=== PATIENT | female | born 2000 | race Hispanic/Latino ===

== ENCOUNTER 2022-07-28 14:38 | Emergency (ER) | payer BC, SELFPAY ==
--- NOTE | ~2022-07-28 | US_ITS ---
EXAMINATION: US OB <=14 wk fetus w TV DATE: 07/28/2022 18:31 INDICATION: Vaginal bleeding during first trimester TECHNIQUE: Real-time pelvic transabdominal and transvaginal ultrasound was performed. COMPARISON: None. FINDINGS: The uterus measures 8.4 x 4.8 x 5.6 cm. There is an intrauterine gestational sac. A yolk sa c is identified. No pole is identified. The mean sac diameter measures 1.5 cm, which correlates with an estimated gestational age of 6 weeks and 2 day(s) (+/-) 4 day(s). The right ovary measures 3.0 x 2.1 x 2.2 cm. The left ovary measures 2.4 x 0.9 x 1.3 cm. There is nor mal vascular flow in the ovaries. There is no free fluid in the pelvis. IMPRESSION: 1. Intrauterine gestational sac and yolk sac with an estimated gestational age of 6 weeks and 2 day(s ) (+/-) 4 day(s) and an estimated delivery date of 03/21/2023 based on mean sac diameter. pole not yet visualized, likely due to early gestation. Reviewed, dictated and finalized at location [facility] IMPRESSION: 1. Intrauterine gestational sac and yolk sac with an estimated gestational age of 6 weeks and 2 day(s) (+/-) 4 day(s) and an estimated delivery date of 2022 based on mean sac diameter. pole not yet visualized, likely due to e maye gestation.
[2022-07-28 15:23] VITALS: BP 141/88; PULSE 90; RESP 16; TEMP 36.6; O2SAT 100
[2022-07-28 15:55] LABS: Basophils Percent Auto 0.4 % (0.2-1.2); Eosinophils Percent Auto 0.2 % (0-4.4); Hematocrit 38.1 % (37.0-47.0); Hemoglobin 12.9 g/dL (12.0-15.0); Immature Granulocyte Absolute 0.01 K/mm3 (0.00-0.031); Immature Granulocyte Percent A 0.2 % (0-0.5); Lymphocytes Absolute Auto 1.18 K/mm3 (0.9-3.2); Lymphocytes Percent Auto 23.8 % (18.3-44.2); Mean Corpuscular HGB Conc 33.9 g/dl (32-36); Mean Corpuscular Hemoglobin 30.9 pg (26-34); Mean Corpuscular Volume 91.1 fl (80-100); Mean Platelet Volume 9.4 fl (7.4-10.4); Monocytes Absolute Auto 0.7 K/mm3 (0.1-0.6); Monocytes Percent Auto 14.5 % (2.6-8.5); Neutrophils Percent Auto 60.9 % (45.5-73.1); Platelet Count Result 258 k/mm3 (150-375); Red Blood Count 4.18 M/mm3 (4.2-5.4); Red Cell Distribution Width 13.1 % (11.5-14.5)
--- NOTE | 2022-07-28 17:23 | ED.PREGNANCY ---
HPI - General Chief complaint: Vaginal Bleeding Stated complaint: vaginal bleeding and cramping Time Seen by Provider: 07/28/22 16:56 History of Present Illness HPI Narrative: 21-year-old female who is currently about 7 weeks by LMP here for evaluation of vaginal bleeding. Patient states yesterday she had quite a bit of lower abdominal cramping that has since resolved. This morning she noticed a small amount of blood in her underwear with a small blood clot. She has not had any bleeding or cramping since then but wanted to be evaluated. She has not yet had an ultrasound. She took a test and found out she was 2 weeks ago. Related Data Home Medications Medication Instructions Recorded Confirmed duloxetine 60 mg capsule,delayed 60 mg PO 09/10/21 03/30/22 release trazodone 50 mg tablet 25 mg PO 09/10/21 03/30/22 lisdexamfetamine 50 mg capsule 50 mg PO DAILY 03/29/22 03/30/22 (Vyvanse) Allergies Allergy/AdvReac Type Severity Reaction Status Date / Time No Known Allergies Allergy Verified 03/29/22 14:58 Review of Systems Review of Systems: Gen: Denies fevers or chills Eyes: Denies eye pain or visual change ENT: Denies congestion Respiratory: Denies shortness of breath or cough CV: Denies chest pain or palpitations GI: Denies abdominal pain nausea, emesis or diarrhea reports pelvic cramping and vaginal bleeding since resolved. Denies burning, urgency, frequency or hematuria Musculoskeletal: Denies back pain or muscle pain Neuro: Denies numbness, tingling, weakness or focal weakness Skin: Denies rash Except as documented, all other systems reviewed and negative [facility] Family History Family History Mother Depression Social History Social History (Updated 03/29/22 @ 14:59 by Pauline Dee) Social History: Caffeine- moderate Smoking status: Never smoker Second hand tobacco smoke exposure: No Alcohol intake: current Alcohol use details: rarely Substance use: never Substance use type: does not use Living arrangements: with family Occupation/Education: occupation Gender identity (if verbalized by the patient): Female Exam Narrative: APPEARANCE: Well appearing, no pain in distress, well-nourished. Head: Normocephalic and atraumatic. EYES: PERRLA/EOMI, conjunctivae clear NOSE: No nasal drainage EARS: External ear normal in appearance THROAT: Oropharynx is clear. Mucous membranes are moist. NECK: Supple. No adenopathy, no masses. RESPIRATORY: Airway patent, respirations nonlabored. Clear to auscultation bilaterally, no rales, rhonchi, wheezing. CARDIOVASCULAR: Regular rate and rhythm without murmurs, rubs, or gallops. : deferred ABDOMINAL: Normoactive bowel sounds. Soft, nontender, nondistended. No rebound tenderness or guarding. MUSCULOSKELETAL: Extremities are warm and well-perfused. Moves all extremities well. No edema. NEURO: Normal speech. No focal neurologic deficits. SKIN: Skin is warm and dry. No rashes. PSYCHIATRIC: Normal affect/mood.. Course Vital Signs Vital signs: Vital Signs Temperature 98 F 07/28/22 15:23 Pulse Rate 90 07/28/22 15:23 Respiratory Rate 16 07/28/22 15:23 Blood Pressure 141/88 H 07/28/22 15:23 Pulse Oximetry 100 07/28/22 15:23 Temperature 98 F 07/28/22 15:23 Pulse Rate 85 07/28/22 19:46 Respiratory Rate 19 07/28/22 19:46 Blood Pressure 134/77 07/28/22 19:46 Pulse Oximetry 100 07/28/22 19:46 MDM - OB/Uterine Contractions MDM Narrative Medical decision making narrative: 21-year-old female who is currently about 6 weeks by LMP here for evaluation of an episode of vaginal bleeding earlier today and abdominal cramping yesterday. She is nontoxic in appearance and has normal vital signs, denies any vaginal bleeding currently. Hemoglobin hematocrit are normal at 12.9/38.1. She is A+, no need for RhoGAM. Yfn
[2022-07-28 19:19] LABS: Appearance Urine Clear (Clear); Bilirubin Urine Negative (Negative); Blood Urine Negative (Negative); Color Urine Yellow (Yellow); Glucose Urine UA Negative (Negative); Ketones Urine Trace mg/dL (Negative); Leukocyte Esterase Ur Negative LEU/UL (Negative); Nitrate Urine Negative (Negative); Protein Urine Negative (Negative); Specific Grav Ur 1.032 (1.001-1.035); Urobilinogen Urine 0.2 mg/dL (<2.0); pH Urine 5.5 (5.0-9.0)
[2022-07-28 19:28] LABS: Add Urine Microscopic? NO
[2022-07-28 19:46] VITALS: BP 134/77; PULSE 85; RESP 19; O2SAT 100
== END 2022-07-28 19:46 | disposition home or self-care (01) ==
PROVIDERS: Emergency Medicine; Emergency Provider Physician Assistant; PCP Physician Assistant
DX: O20.9 Hemorrhage in early pregnancy, unspecified (principal); Z3A.01 Less than 8 weeks gestation of pregnancy
CPT/HCPCS: 36415; 76801; 76817; 81003; 84702; 85025; 85461; 86850; 86900; 86901; 99284

== ENCOUNTER 2023-03-15 13:08 | Inpatient (IN) | payer BC, SELFPAY ==
[2023-03-15] VITALS (16 sets, daily range): BP systolic 125–148; BP diastolic 77–100; PULSE 85–118; RESP 18; TEMP 36.6
--- NOTE | 2023-03-15 13:51 | LDADM ---
This patient, Ananya Hagen, was admitted to Labor/Delivery/Recovery 108 on 03/15/23 at 13:08. Plans for labor, pain management and were discussed with patient. Patient/family oriented to hospital policies and general routines including ID bracelet, bed and alarms, visiting hours, pain management, procedures, bathroom and other care routines, personal items, smoking policy, room service/diet and guest tray routines, infant security routines, and visiting hours. Patient/Family are encouraged to report perceived risks to care and to ask questions if they do not understand what they are told or what they should do. See OBIX for further documentation.
[2023-03-15 14:14] LABS: Basophils Percent Auto 0.3 % (0.2-1.2); Eosinophils Percent Auto 0.3 % (0-4.4); Hematocrit 34.3 % (37.0-47.0); Hemoglobin 10.8 g/dL (12.0-15.0); Immature Granulocyte Absolute 0.12 K/mm3 (0.00-0.031); Immature Granulocyte Percent A 0.9 % (0-0.5); Lymphocytes Absolute Auto 1.77 K/mm3 (0.9-3.2); Lymphocytes Percent Auto 12.9 % (18.3-44.2); Mean Corpuscular HGB Conc 31.5 g/dl (32-36); Mean Corpuscular Hemoglobin 27.3 pg (26-34); Mean Corpuscular Volume 86.6 fl (80-100); Mean Platelet Volume 10.4 fl (7.4-10.4); Monocytes Absolute Auto 0.6 K/mm3 (0.1-0.6); Monocytes Percent Auto 4.1 % (2.6-8.5); Neutrophils Absolute Auto 11.2 K/mm3 (1.3-6.7); Neutrophils Percent Auto 81.5 % (45.5-73.1); Platelet Count Result 369 k/mm3 (150-375); Red Blood Count 3.96 M/mm3 (4.2-5.4); Red Cell Distribution Width 13.9 % (11.5-14.5); White Blood Count 13.7 K/mm3 (4.5-10.0)
[2023-03-15 14:20] LABS: Creatinine Urine 136.2 mg/dL
[2023-03-15 14:22] LABS: Alanine Aminotransferase 18 U/L (6-35); Albumin Level 3.8 g/dL (3.5-5.1); Alkaline Phosphatase 255 U/L (38-126); Anion Gap 9 mmol/L (8-16); Aspartate Amino Transferase 27 U/L (14-36); Bilirubin,Total 0.5 mg/dL (0.2-1.3); Blood Urea Nitrogen 10 mg/dL (7-17); Calcium 9.1 mg/dL (8.4-10.2); Carbon Dioxide 18 mmol/L (22-30); Chloride 106 mmol/L (98-107); Estimated Glomerular Filt Rate > 60; Glucose 93 mg/dL (65-110); Potassium 3.8 mmol/L (3.4-5.0); Sodium 133 mmol/L (137-145); Uric Acid 5.3 mg/dL (2.5-7.5)
[2023-03-15 14:23] LABS: Total Protein Urine Random < 5 mg/dL; Ur Ttl Prot Creatinine Ratio < 0.04 mg/mg (0-0.20)
[2023-03-15] MEDS: DINOPROSTONE 10 MG VAG INSERT VAGINAL (14:30)
[2023-03-15 15:03] LABS: HIV 1/2 Ab P24 Ag Result Negative (Negative)
[2023-03-15 15:25] LABS: Rubella IgG Antibody 10.7 IU/ML
[2023-03-15 15:32] LABS: Appearance Urine Clear (Clear); Bacteria Urine 2+ /hpf; Bilirubin Urine Negative (Negative); Blood Urine Negative (Negative); Color Urine Yellow (Yellow); Glucose Urine UA Negative (Negative); Ketones Urine Trace mg/dL (Negative); Leukocyte Esterase Ur 1+ LEU/UL (NEGATIVE); Need Manual Microscopic Reviewed; Nitrate Urine Negative (Negative); Non Pathogenic Casts 0-2; Protein Urine Negative (Negative); RBC Urine 0-2 /hpf (0-2); Specific Grav Ur 1.021 (1.001-1.035); Squamous Epithelial Cell Urine Occasional /hpf (Few); Urobilinogen Urine 0.2 mg/dL (<2.0)
[2023-03-15 15:36] LABS: Add Urine Microscopic? YES
--- NOTE | 2023-03-15 20:34 | WPDANESEPP ---
Anes - Eval Pre Procedure Procedure: Labor epidural Date/Time: 03/15/23 20:34 Surgeon: Fady Preop Diagnosis: Abdominal pain with contractions Pre Op Diagnosis: MIL Patient Data Age: 22 Gender: F Height: Weight: Last Vital Signs Temp 97.8 F 03/15/23 14:30 Pulse 98 03/15/23 16:31 Resp 18 03/15/23 14:30 BP 125/99 H 03/15/23 16:31 O2 Del Method Room Air 03/15/23 13:50 Allergies Allergy/AdvReac Type Severity Reaction Status Date / Time No Known Allergies Allergy Verified 03/15/23 09:50 Home Medications Medication Instructions Recorded Confirmed Type docosahexaenoic acid 200 mg 200 mg PO DAILY 01/13/23 03/15/23 History capsule ( DHA) ferrous sulfate 325 mg (65 mg 325 mg PO DAILY 01/13/23 03/15/23 History iron) tablet (FeroSul) Laboratory Tests 03/15/23 03/15/23 13:34 13:35 WBC 13.7 H K/mm3 (4.5-10.0) RBC 3.96 L M/mm3 (4.2-5.4) Hgb 10.8 L g/dL (12.0-15.0) Hct 34.3 L % (37.0-47.0) MCV 86.6 fl (80-100) MCH 27.3 pg (26-34) MCHC 31.5 L g/dl (32-36) RDW 13.9 % (11.5-14.5) Plt Count 369 k/mm3 (150-375) MPV 10.4 fl (7.4-10.4) Immature Gran % (Auto) 0.9 H % (0-0.5) Neut % (Auto) 81.5 H % (45.5-73.1) Lymph % (Auto) 12.9 L % (18.3-44.2) [place] % (Auto) 4.1 % (2.6-8.5) Eos % (Auto) 0.3 % (0-4.4) Baso % (Auto) 0.3 % (0.2-1.2) Lymph # (Auto) 1.77 K/mm3 (0.9-3.2) [place] # (Auto) 0.6 K/mm3 (0.1-0.6) Eos # (Auto) 0.0 K/mm3 (0-0.3) Baso # (Auto) 0.0 K/mm3 (0.0-0.1) Abs Immat Gran (auto) 0.12 H K/mm3 (0.00-0.031) Absolute Neuts (auto) 11.2 H K/mm3 (1.3-6.7) Absolute Nucleated RBC 0.0 K/mm3 (0.0-0.012) Nucleated RBC % 0.0 % (0.0-0.2) Sodium 133 L mmol/L (137-145) Potassium 3.8 mmol/L (3.4-5.0) Chloride 106 mmol/L (98-107) Carbon Dioxide 18 L mmol/L (22-30) Anion Gap 9 mmol/L (8-16) BUN 10 mg/dL (7-17) Creatinine 0.60 L mg/dL (0.7-1.0) Estim Creat Clear Calc Not Reportable Estimated GFR > 60 (59 - ) Glucose 93 mg/dL (65-110) Uric Acid 5.3 mg/dL (2.5-7.5) Calcium 9.1 mg/dL (8.4-10.2) Total Bilirubin 0.5 mg/dL (0.2-1.3) AST 27 U/L (14-36) ALT 18 U/L (6-35) Alkaline Phosphatase 255 H U/L (38-126) Total Protein 8.0 g/dL (6.3-8.2) Albumin 3.8 g/dL (3.5-5.1) Urine Color Yellow (Yellow) Urine Appearance Clear (Clear) Urine pH 6.0 (5.0-9.0) Ur Specific [place] 1.021 (1.001-1.035) Urine Protein Negative mg/dL (Negative) Urine Glucose (UA) Negative mg/dL (Negative) Urine Ketones Trace H mg/dL (Negative) Ur Blood (Man) Negative (Negative) Urine Nitrate Negative (Negative) Urine Bilirubin Negative (Negative) Urine Urobilinogen 0.2 mg/dL (<2.0) Ur Leukocyte Esterase 1+ H DUY/UL (NEGATIVE) Add Ur Microanalysis Reviewed Urine RBC 0-2 /hpf (0-2) Urine WBC 6-10 /hpf (0-3) Ur Squamous Epith Cells Occasional /hpf (Few) Urine Bacteria 2+ H /hpf Urine Casts 0-2 U Random Total Protein < 5 mg/dL Urine Creatinine 136.2 mg/dL Protein/Creat Ratio 2 < 0.04 mg/mg (0-0.20) RPR Pending HIV 1&2 Ab/P24 Ag 4thGn Negative (Negative) Rubella IgG Antibody 10.7 IU/ML (10 - ) Blood Type A Positive Antibody Screen Negative : gestational age HCG: positive Patient hx anesthesia problems: none Family hx anesthesia problems: none Results Review: All pre-operative results and documents have been reviewed as part of the pre-operative evaluation. [facility] Past Medical History Medical History (Reviewed 02/27
[2023-03-15] MEDS: ACETAMINOPHEN 500 MG TABLET 1000 MG PO (21:28)
[2023-03-16] VITALS (214 sets, daily range): BP systolic 90–154; BP diastolic 38–117; PULSE 66–163; RESP 20; TEMP 35.8–36.7; O2SAT 92–100
[2023-03-16] MEDS: LACTATED RINGERS 1,000 ML 125 ML IV CONT ×3 (03:32→12:36)
[2023-03-16] MEDS: OXYTOCIN 30 UNITS/NS 500 ML 30 UNITS/500 ML BAG 6 UNITS IV CONT (03:32)
--- NOTE | 2023-03-16 06:24 | PM.IMHP ---
H&P: HPI History of Present Illness Date/Time: 03/16/23 06:24 Chief Complaint: elevated blood pressure Narrative: Ananya is a 22yo @ 39.1wks who presented to clinic for routine care. She was found to have elevated blood pressures. She was sent to L&D for IOL; blood pressures remained elevated. PEC w/u was negative; giving a diagnosis of gestational hypertension. She denies severe RAMAN, CP, SOB, RUQ pain, vision changes. She endorses good movement. She is s/p cervidil overnight. Her is complicated by: - Obesity - Gestational hypertension Review of Systems Constitutional: Constitutional: Denies chills, Denies fever(s) and Denies headache(s) Eyes: Eyes: Denies change in vision ENT: Denies headache(s) Cardiovascular: Cardiovascular: Denies chest pain and Denies dyspnea Respiratory: Respiratory: Denies dyspnea Genitourinary: Genitourinary: Denies abnormal vaginal bleeding and Denies vaginal discharge Neurologic: Denies headache(s) Psychiatric: Psychiatric: Denies anxiety and Denies depression [facility] Past Medical History Medical History Anxiety and depression Over weight and not yet delivered Suppression of menses Vaginal discharge Family History Family History Mother Depression Father Depression Grandparent Acute myocardial infarction Grandparent Acute myocardial infarction Social History Social History Social History: Caffeine- moderate Smoking status: Never smoker Second hand tobacco smoke exposure: No Alcohol intake: current Alcohol use details: rarely Substance use: never Substance use type: does not use Lack of Transportation: No Lack of Food: Never True Current Housing: I Have Housing Concerned About Future Housing: No Difficulty Paying Gas/Electric Bills: No Difficulty Paying for Meds: No Currently Unemployed: No Education: High School Diploma/GED Difficulty w/ Childcare or Family Care: No Living arrangements: with family Occupation/Education: occupation Gender identity (if verbalized by the patient): Female Spiritual care concerns: No Meds Home Medications and Allergies Home Medications Medication Instructions Recorded Confirmed Type docosahexaenoic acid 200 mg 200 mg PO DAILY 01/13/23 03/15/23 History capsule ( DHA) ferrous sulfate 325 mg (65 mg 325 mg PO DAILY 01/13/23 03/15/23 History iron) tablet (FeroSul) Allergies Allergy/AdvReac Type Severity Reaction Status Date / Time No Known Allergies Allergy Verified 03/15/23 09:50 Vital Signs Vital Signs - 24 hr 03/15/23 13:50 03/15/23 13:57 03/15/23 14:00 Temperature Pulse Rate 118 H 98 Respiratory Rate Blood Pressure 137/98 H 148/83 H Oxygen Delivery Room Air 03/15/23 14:15 03/15/23 14:45 03/15/23 14:30 Temperature 97.8 F Pulse Rate 117 H 118 H Respiratory Rate 18 Blood Pressure 143/100 H 128/81 Oxygen Delivery 03/15/23 15:00 03/15/23 15:15 03/15/23 15:30 Temperature Pulse Rate 100 85 94 Respiratory Rate Blood Pressure 131/77 135/79 139/86 Oxygen Delivery 03/15/23 15:45 03/15/23 16:00 03/15/23 16:15 Temperature Pulse Rate 98 104 H 98 Respiratory Rate Blood Pressure 131/82 131/89 142/89 H Oxygen Delivery 03/15/23 16:31 03/15/23 20:56 03/15/23 21:00 Temperature Pulse Rate 98 104 H 101 H Respiratory Rate Blood Pressure 125/99 H 141/81 H 144/85 H Oxygen Delivery 03/15/23 21:15 03/15/23 23:47 03/16/23 02:33 Temperature 97.7 F Pulse Rate 91 91 Respiratory Rate Blood Pressure 140/85 141/89 H Oxygen Delivery 03/16/23 03:33 03/16/23 03:45 03/16/23 04:00 Temperature Pulse Rate 89 91 85 Respiratory Rate Blood Pressure 145/87 H 125/79 135/77 Oxygen Delivery
--- NOTE | 2023-03-16 07:32 | WPDHPUPDATE1 ---
History and Physical Update Update Date/Time: 03/16/23 07:32 History and Physical has been reviewed, including an updated exam of the patient. There are NO changes in the patient's condition. Risks, benefits, and alternatives have been discussed and questions answered. Patient agrees to proceed with procedure.
--- NOTE | 2023-03-16 12:10 | PM.OBPNLAB ---
Pain Control Date/time seen: 03/16/23 12:10 Pain control: epidural Pelvic Exam Dilation (cm): 4 Effacement (%): 80 station: -2 Amniotic membrane status: Ruptured (thick meconium) Contractions Monitor mode: Internal Contraction frequency: 2 Status Comments: 140's/ mod cande/ + accels/ has some occasional late or variable decels that responds to intrauterine resuscitation -- currently category 1 Assessment and Plan Pitocin rate (mU/min): 6 Assessment: induction ongoing Plan: continuous present management
[2023-03-16 13:18] LABS: Rapid Plasma Reagin Non-Reactive (NonReactive)
--- NOTE | 2023-03-16 20:12 | P.PCNOB_ITS ---
OB - Delivery Note Procedure Delivery date: 03/16/23 Events: Gestational Hypertension Induction method: Per Cervidil Protocol Delivery augmentation: Rupture of Membranes and Pitocin Delivery monitor: External FHT and Internal Uterine Route of delivery: Laceration Description: Perineal - 2nd Degree Delivery repair: vicryl Specimen: Yes (placenta) Quantitative Blood Loss (ml): 300 Anesthesia type: Epidural Disposition: Floor Baby Date of : 03/16/23 Time of : 19:47 Weeks of gestation at delivery: 39 (.1) gender: Female presentation: vertex Placenta delivery description: Expressed Cord Vessel Description: 3 Vessels and Delayed Cord Clamping score one minute: 9 score five minutes: 9 Narrative: Leigha progressed to complete dilation with strong desire to push. She pushed for approximately an hour and 15 minutes with good maternal effort. She delivered the head over intact perineum. No nuchal cord was palpated. She easily delivered the 's shoulders and body without complication. The infant was immediately placed skin to skin. The pediatric team was present due to thick meconium. The had spontaneous cry. Delayed cord clamping was performed. The umbilical cord was then doubly clamped and cut. A segment of cord was collected for cord gases. The remaining cord blood was collected for typing. With Pitocin running and gentle downward traction on the cord, the placenta delivered without complications. She was examined and a second- degree perineal laceration was identified. It was reapproximated in the normal fashion using 2-0 Vicryl. Bimanual massage was performed and a small amount of clots were evacuated from the uterus but the uterus was then noted to be firm with minimal bleeding. Sponge, lap, instrument, needle counts were correct at the end of the procedure. Mom and baby were left bonding in the birthing suite in stable condition. [facility] Delivery Billing Delivery Delivery: Delivery Charge
[2023-03-16] MEDS: OXYTOCIN 30 UNITS/NS 500 ML 30 UNITS/500 ML BAG 125 UNITS IV CONT (20:17)
[2023-03-16] MEDS: IBUPROFEN 600 MG TABLET PO (22:31)
[2023-03-16] MEDS: BENZOCAINE 20% AER SPR (*SP) 56 GM CAN 1 SPRAY TOPICAL (22:33)
[2023-03-16] MEDS: WITCH HAZEL 40 PADS 1 PAD TOPICAL (22:33)
--- NOTE | 2023-03-16 22:51 | PC.NURSE ---
Patient transferred to post room #280 per wheelchair from labor and delivery. Support person present. Oriented to unit, room, information board, rooming in, admission packet and security measures. Patient verbalizes understanding.
[2023-03-17 04:45] VITALS: BP 120/64; PULSE 71; RESP 16; TEMP 36
[2023-03-17 05:16] LABS: Hematocrit 28.5 % (37.0-47.0); Hemoglobin 9.1 g/dL (12.0-15.0); Mean Corpuscular HGB Conc 31.9 g/dl (32-36); Mean Corpuscular Hemoglobin 27.6 pg (26-34); Mean Corpuscular Volume 86.4 fl (80-100); Mean Platelet Volume 10.4 fl (7.4-10.4); Platelet Count Result 297 k/mm3 (150-375); Red Cell Distribution Width 14.1 % (11.5-14.5); White Blood Count 21.9 K/mm3 (4.5-10.0)
[2023-03-17 05:34] LABS: Alanine Aminotransferase 18 U/L (6-35); Albumin Level 2.9 g/dL (3.5-5.1); Alkaline Phosphatase 208 U/L (38-126); Anion Gap 4 mmol/L (8-16); Aspartate Amino Transferase 33 U/L (14-36); Bilirubin,Total 0.4 mg/dL (0.2-1.3); Blood Urea Nitrogen 11 mg/dL (7-17); Calcium 8.5 mg/dL (8.4-10.2); Carbon Dioxide 20 mmol/L (22-30); Chloride 108 mmol/L (98-107); Estimated Glomerular Filt Rate > 60; Glucose 93 mg/dL (65-110); Potassium 3.6 mmol/L (3.4-5.0); Sodium 132 mmol/L (137-145)
[2023-03-17 07:40] VITALS: BP 122/81; PULSE 78; RESP 16; TEMP 36.4; O2SAT 99
[2023-03-17] MEDS: MULTIVIT/MIN/PREN/FOL AC/IRON TABLET 1 TAB PO (09:59)
[2023-03-17] MEDS: POLYSACCHARIDE IRON COMPLEX 150 MG CAPSULE PO (09:59)
[2023-03-17] MEDS: IBUPROFEN 600 MG TABLET PO ×2 (09:59→20:58)
[2023-03-17] MEDS: DOCUSATE SODIUM 100 MG CAPSULE PO (10:01)
[2023-03-17] MEDS: LANOLIN (LANSINOH) 7.5 GM CREAM 1 APPLIC TOPICAL (10:01)
--- NOTE | 2023-03-17 11:50 | P.PNOB_ITS ---
OB - PN: Subj Subjective Date/time seen: 03/17/23 11:50 Narrative: PPD#1 Ananya reports doing well today. Her bleeding is inspector rough castings. Her pain is controlled. She is tolerating regular diet, voiding, passing gas, and ambulating without issues. She is breast feeding. OB - PN: Obj Data Labs 03/17/23 04:51 03/17/23 04:51 Labs: Laboratory Results - last 24 hr 03/15/23 03/17/23 13:35 04:51 WBC 21.9 H RBC 3.30 L Hgb 9.1 L Hct 28.5 L MCV 86.4 MCH 27.6 MCHC 31.9 L RDW 14.1 Plt Count 297 MPV 10.4 Sodium 132 L Potassium 3.6 Chloride 108 H Carbon Dioxide 20 L Anion Gap 4 L BUN 11 Creatinine 0.60 L Estim Creat Clear Calc Not Reportable Estimated GFR > 60 Glucose 93 Calcium 8.5 Total Bilirubin 0.4 AST 33 ALT 18 Alkaline Phosphatase 208 H Total Protein 6.0 L Albumin 2.9 L RPR Non-reactive OB - PN A/P Assessment and Plan (1) Normal vaginal delivery: Code(s): O80 - Encounter for full-term uncomplicated delivery Status: Acute (2) Gestational hypertension: Qualifiers: Trimester: third trimester Qualified Code(s): O13.3 - Gestational [-induced] hypertension without significant proteinuria, third trimester Code(s): O13.9 - Gestational [-induced] hypertension without significant proteinuria, unspecified trimester Status: Acute Plan day: 1 Plan: routine care Comments: - pumping/putting baby to breast q2-3hr - BPs better controlled today - hydration/ambulation encouraged - IV iron for anemia - plan for d/c home tomorrow. Time Spent With Patient Time: Total time spent is greater than 50% in coordination of care (as documented) at patient's floor/unit and/or counseling patient: Review of Systems Constitutional: Constitutional: Denies chills, Denies fever(s) and Denies headache(s) Eyes: Eyes: Denies change in vision ENT: Denies dizziness and Denies headache(s) Cardiovascular: Cardiovascular: Denies chest pain, Denies palpitations and Denies dyspnea Respiratory: Respiratory: Denies cough and Denies dyspnea Gastrointestinal: Gastrointestinal: Denies nausea and Denies vomiting Neurologic: Denies dizziness and Denies headache(s) Endocrine: Endocrine: Denies palpitations Exam Const: General: cooperative, comfortable and no acute distress Orie ntation/consciousness: patient oriented x3 Resp: Effort & Inspection: normal respiratory effort Auscultation: clear to auscultation bilaterally Cardio: Rate: regular rate GI: Inspection: non-distended GI Palp: No abdominal tenderness and Yes Soft to palpation Auscultation: normal bowel sounds : Other: fundus firm Skin: General skin exam: normal color Neuro: General: patient oriented x3 Extrem: General: normal to inspection Psych: Appearance: grossly normal Affect: normal affect Attitude: cooperative
[2023-03-17 11:51] VITALS: BP 131/86; PULSE 91; RESP 16; TEMP 36.7; O2SAT 99
--- NOTE | 2023-03-17 13:07 | WPDANLDPN2 ---
Anes-Prog Note L&D Date/Time: 03/17/23 13:07 Neuro status: Neuro function grossly intact. Vital Signs: Last Vital Signs Temp 36.7 C 03/17/23 11:51 Pulse 91 03/17/23 11:51 Resp 16 03/17/23 11:51 BP 131/86 03/17/23 11:51 Pulse Ox 99 03/17/23 11:51 O2 Del Method Room Air 03/15/23 13:50 Pain score (VAS): 0 I/O: Intake & Output 03/16/23 03/17/23 03/17/23 23:59 07:59 15:59 Intake Total 500 250 Output Total 300 400 500 Balance -300 100 -250 Patient feedback: Patient satisfied with anesthetic care.
[2023-03-17] MEDS: IRON SUCROSE COMPLEX 500 MG in SODIUM CHLORIDE 0.9% IV 250 ML 78.57 MG IVPB (14:02)
[2023-03-17 17:00] VITALS: BP 136/79; PULSE 83; RESP 18; TEMP 36.9
[2023-03-17 20:56] VITALS: BP 122/73; PULSE 77; RESP 16; TEMP 36.8; O2SAT 99
[2023-03-17 23:52] VITALS: BP 130/78
[2023-03-18 07:45] VITALS: BP 128/85; PULSE 85; RESP 18; TEMP 36.4; O2SAT 100
--- NOTE | 2023-03-18 08:04 | PM.OBDSVD ---
DS: Admitting Diagnosis Discharge Date 03/18/23 Admitting Diagnosis Gestational hypertension DS: Discharge Diagnosis Discharge Diagnosis (1) Normal vaginal delivery: Code(s): O80 - Encounter for full-term uncomplicated delivery Status: Acute (2) Gestational hypertension: Qualifiers: Trimester: third trimester Qualified Code(s): O13.3 - Gestational [-induced] hypertension without significant proteinuria, third trimester Code(s): O13.9 - Gestational [-induced] hypertension without significant proteinuria, unspecified trimester Status: Acute OB - DS: Summary OB Procedures : NST, PIH Mgmt and Ultrasound OB Procedures Intrapartum: Spontaneous Vag Delivery OB Procedures: : None Peripartum Data Delivery Method: Natural Vaginal Laceration Description: Perineal - 2nd Degree complications: none [place] 1: Gender: Female Disposition of : home Status at Discharge Functional status at discharge: independent ambulation Overall status at discharge: patient is back to baseline Time Spent with Patient Time attestation: Total time spent providing and/or coordinating discharge services: Time spent: Less than 30 minutes Exam Const: General: cooperative, comfortable, no acute distress and obese Orientation/consciousness: patient oriented x3 Resp: Effort & Inspection: normal respiratory effort Auscultation: clear to auscultation bilaterally Cardio: Rate: regular rate GI: Inspection: non-distended GI Palp: No abdominal tenderness and Yes Soft to palpation Auscultation: normal bowel sounds : Other: fundus firm Skin: General skin exam: normal color Neuro: General: patient oriented x3 Extrem: General: normal to inspection Psych: Appearance: grossly normal Affect: normal affect Attitude: cooperative DS: Data Data Completed and Pending Pending studies at discharge: Pending at discharge 03/16/23 19:51 Surgical [PTH] Routine Discharge Plan Discharge Attending physician on discharge: Anisha Shrestha Discharging Clinician: Anisha Shrestha Anticipated Discharge Date/Time: 03/18/23 15:00 Patient Disposition: Home, Self-Care Activity: may shower and pelvic rest Diet: regular Patient Instructions: Antibiotic Form, Vaginal Delivery (DC) Stand Alone Forms: General Discharge Information Follow-up/Referrals: Anisha Shrestha MD [Physician] - 4 Weeks Discharge Medications: New docusate sodium 100 mg Capsule 100 mg PO BID PRN (Reason: Constipation) Qty: 60 0RF ibuprofen 600 mg Tablet 600 mg PO Q6H PRN (Reason: Cramping) Qty: 40 0RF acetaminophen 500 mg tablet 1,000 mg PO TID Qty: 60 0RF Continued ferrous sulfate [FeroSul] 325 mg (65 mg iron) tablet 325 mg PO DAILY DHA 200 mg capsule 200 mg PO DAILY Date of admission: 03/15/23 13:08 Primary Care Provider: Dago Aparicio Admitting Provider: Anisha Shrestha Attending physician on admission: Anisha Shrestha Condition: Stable
[2023-03-18] MEDS: DOCUSATE SODIUM 100 MG CAPSULE PO (10:23)
[2023-03-18] MEDS: IBUPROFEN 600 MG TABLET PO (10:23)
[2023-03-18] MEDS: MULTIVIT/MIN/PREN/FOL AC/IRON TABLET 1 TAB PO (10:23)
[2023-03-18] MEDS: POLYSACCHARIDE IRON COMPLEX 150 MG CAPSULE PO (10:23)
[2023-03-18 12:36] VITALS: BP 144/84; PULSE 99; RESP 16; TEMP 36.9; O2SAT 100
--- NOTE | 2023-03-18 13:12 | PC.NURSE ---
Patient viewed the discharge video Mother & Baby Care, The First Two Weeks . Patient was given the opportunity and encouraged to ask questions. Patient verbalized understanding of information shared and has been given the mother/baby guide for home reference.
== END 2023-03-18 16:29 | disposition home or self-care (01) | DRG 807 ==
LOC: ANHLDR 03-16 08:33 → ANHOB2 03-16 23:00
PROVIDERS: Admitting Provider Obstetrics & Gynecology; PCP Physician Assistant; Visit Provider Obstetrics & Gynecology
DX: O13.4 Gestational [pregnancy-induced] hypertension without significant proteinuria, complicating childbirth (principal); Z37.0 Single live birth; O99.214 Obesity complicating childbirth; O77.0 Labor and delivery complicated by meconium in amniotic fluid; O70.1 Second degree perineal laceration during delivery; Z3A.39 39 weeks gestation of pregnancy
CPT/HCPCS: 36415; 80053; 81001; 82570; 84156; 84550; 85025; 85027; 86592; 86703; 86762; 86850; 86900; 86901; 87086; 88307; A9270; G0432; J1756; J2590; J2795; J7050; J7120